=== PATIENT | female | born 1990 | race African-American/Black ===

== ENCOUNTER 2018-03-17 21:44 | Emergency (ER) | payer MEDICAID ==
[~2018-03-17] VITALS: Ht 160 cm; Wt 59.0 kg
[2018-03-18] MEDS ORDERED: LORAZEPAM 1MG TABLET PO ONE (03:00)
[2018-03-18 14:45] VITALS: BP 105/52
== END 2018-03-18 14:45 | disposition home or self-care (01) ==
LOC: ER 21:44
DX: F41.9 Anxiety disorder, unspecified (principal)
CPT/HCPCS: 81025; 93005; 99284